=== PATIENT | male | born 1990 | race Caucasian/White ===

== ENCOUNTER 2020-09-21 16:36 | Emergency (ER) | payer BC, MEDICAID ==
[~2020-09-21] VITALS: Ht 172.7 cm; Wt 52.9 kg
[~2020-09-21 16:36] MED LIST: LIDOcaine 1% W/epiNEPHrine 1:100,000 20ml vial ONE
[2020-09-21 16:40] VITALS: BP 147/86
[2020-09-21] MEDS ORDERED: HYDROcodone/acetaminophen 5mg/325mg tablet PO ONE (16:50)
[2020-09-21] MEDS ORDERED: TETanus/Pertussis (Acell)/Diphther VAC/PF (Tdap-Adult) 0.5ml syringe IMVAC ONE (16:55)
[2020-09-21] MEDS ORDERED: CEPH250T PO (17:29)
[2020-09-21] MEDS ORDERED: SULF1TAB45 PO (17:29)
[2020-09-21] MEDS ORDERED: cephalexin 500mg capsule PO ONE (17:35)
[2020-09-21] MEDS ORDERED: sulfamethoxazole/trimethoprim DS (800/160mg) tablet PO ONE (17:35)
== END 2020-09-21 18:00 | disposition home or self-care (01) ==
LOC: ER 16:36
DX: L03.011 Cellulitis of right finger (principal); F12.10 Cannabis abuse, uncomplicated; Z79.899 Other long term (current) drug therapy
CPT/HCPCS: 10060; 26011; 73140; 87070; 87077; 87186; 90715; 99284